=== PATIENT | male | born 1995 | race Caucasian/White ===

== ENCOUNTER 2017-04-29 15:58 | Emergency (ER) | payer OTHER ==
[~2017-04-29] VITALS: Ht 182.9 cm; Wt 73.0 kg
[2017-04-29 16:05] VITALS: TEMP 36.8; Ht 182.9 cm; Wt 73.0 kg
[2017-04-29] MEDS ORDERED: SODIUM CHLORIDE 0.9% 1000ML 1,000 ML IV STA (16:20)
[2017-04-29 16:36] VITALS: O2SAT 97
[2017-04-29] MEDS ORDERED: SERT50TA PO (16:38)
[2017-04-29 17:14] LABS: BASO % 0.4 %; BASO ABS # 0.02 K/uL (0-0.2); EOS % 1.3 %; EOS ABS # 0.07 K/uL (0-0.5); HEMOGLOBIN 16.5 g/dL (14.0-18.0); LYMPH % 35.7 %; LYMPH ABS # 1.89 K/uL (1.2-3.4); MEAN CORPUSCULAR HEMOGLOBIN 31.3 pg (25-34); MEAN CORPUSCULAR HGB CONC 35.1 g/dl (32-36); MEAN PLATELET VOLUME 10.2 fL (7.4-10.4); MONO % 8.3 %; MONO ABS # 0.44 K/uL (0.11-0.59); NEUT % 54.3 %; NEUT ABS # 2.88 K/uL (1.4-6.5); PLATELET COUNT 208 K/uL (130-400); RED CELL DISTRIBUTION WIDTH CV 12.7 % (11.5-14.5); RED CELL DISTRIBUTION WIDTH SD 40.9 fL (36.4-46.3)
[2017-04-29 17:24] LABS: INR 1.1 (0.9-1.1)
[2017-04-29 17:33] LABS: CREATININE 0.93 mg/dl (0.60-1.40); POTASSIUM 3.5 mmol/L (3.5-5.1)
[2017-04-29 17:36] LABS: TOTAL PROTEIN 8.7 gm/dl (6.4-8.2)
--- NOTE | 2017-04-29 20:41 | EMERGENCY ROOM VISIT NOTE ---
History Report prepared by Jose Eliasibgregorio: Tyra Rivers Under the Supervision of: Dr. Ritchie Preston D.O. First contact with patient: 16:10 Chief Complaint: OVERDOSE (ACCIDENTAL) Stated Complaint: TOOK TOO MANY PILLS History of Present Illness The patient is a 22 year old male who presents to the Emergency Room with complaints of episodic suicidal gesture at 1000 this morning. This morning he took more medication than prescribed. He took three 50 mg Zoloft, three of Naheed's Wart, one Ibuprofen, and three OTC medication of unknown name. He denies taking any Aspirin. He notes that his intent was to end his life. He has a history of psychiatric issues in the past, for which he regularly sees a counselor. He has a history of depression. He denies any history of schizophrenia. He denies any auditory and visual hallucinations. He is a sophomore student at [employer]. He feels overwhelmed from school. Pt denies headache, change in vision, fevers, chest pain, shortness of breath, nausea, vomiting, diarrhea, or pain with urination. Source of History: patient Onset: 1000 this morning Position: other (global) Quality: other (suicidal gesture) Timing: other (episodic) Associated Symptoms: No fevers, No headache, No chest pain, No SOB, No nausea, No vomiting, No diarrhea, No urinary symptoms (no pain with urination) Note: He denies any auditory and visual hallucinations. He denies any change in vision. Review of Systems See HPI for pertinent positives & negatives. A total of 10 systems reviewed and were otherwise negative. Past Medical & Surgical Medical Problems: (1) Depression Family History No significant family history Social History Smoking Status: Never Smoker Smokeless Tobacco Use: No Alcohol Use: none Marital Status: single Housing Status: lives with family, lives with roommate Occupation Status: [employer] student Current/Historical Medications Scheduled Sertraline (Zoloft), 50 MG PO DAILY Allergies Coded Allergies: No Known Allergies (Unverified , 04/29/17) Physical Exam Vital Signs Date Time Temp Pulse Resp B/P (MAP) Pulse Ox O2 Delivery O2 Flow Rate FiO2 04/29/17 18:35 61 15 100 04/29/17 18:30 117/68 04/29/17 18:05 58 18 100 04/29/17 18:00 113/70 04/29/17 17:35 54 19 100 04/29/17 17:30 121/72 04/29/17 17:28 54 22 100 04/29/17 17:16 60 04/29/17 17:01 130/82 04/29/17 16:36 97 Room Air 04/29/17 16:36 97 Room Air 04/29/17 16:05 36.8 67 16 136/74 98 Physical Exam GENERAL: Sitting up in bed, alert, well appearing, well nourished, no distress, non-toxic EYE EXAM: normal conjunctiva. OROPHARYNX: no exudate, no erythema, lips, buccal mucosa, and tongue normal and mucous membranes are moist NECK: supple, no nuchal rigidity, no adenopathy, non-tender LUNGS: Clear to auscultation. Normal chest wall mechanics HEART: no murmurs, S1 normal and S2 normal ABDOMEN: abdomen soft, non-tender, normo-active bowel sounds, no masses, no rebound or guarding. BACK: Back is symmetrical on inspection and there is no deformity, no midline tenderness, no CVA tenderness. SKIN: no rashes and no bruising UPPER EXTREMITIES: upper extremities are grossly normal. LOWER EXTREMITIES: No pitting edema. NEURO EXAM: Normal sensorium, cranial nerves II-XII grossly intact, normal speech, no gross weakness of arms, no gross weakness of legs. PSYCH: Admits to SI with an intent. Medical Decision & Procedures Laboratory Results 04/29/17 16:55 Red Blood Count 5.28, Mean Corpuscular Volume 89.0, Mean Corpuscular Hemoglobin 31.3, Mean Corpuscular Hemoglobin Concent 35.1, Mean Platelet Volume 10.2, Neutrophils (%) (Auto) 54.3, Lymphocytes (%) (Auto) 35.7, Monocytes (%) (Auto) 8.3, Eosinophils (%) (Auto) 1.3, Basophils (%) (Auto) 0.4, Neutrophils # (Auto) 2.88, Lymphocytes # (Auto) 1.89, Monocytes # (Auto) 0.44, Eosinophils # (Auto) 0.07, Basophils # (Auto) 0.02 04/29/17 16:55 Test 04/29/17 16:45 04/29/17 16:55 Urine Color YELLOW Urine Appearance CLEAR (CLEAR) Urine pH 6.5 (4.5-7.5) Urine Specific [place] 1.030 (1.000-1.030) Urine Protein NEG (NEG) Urine Glucose (UA) NEG (NEG) Urine Ketones NEG (NEG) Urine Occult Blood NEG (NEG) Urine Nitrite NEG (NEG) Urine Bilirubin NEG (NEG) Urine Urobilinogen NEG (NEG) Urine Leukocyte Esterase NEG (NEG) Urine Opiates Screen NEG (NEG) Urine Methadone, Qualitative NEG (NEG) Urine Barbiturates NEG (NEG) Urine Phencyclidine (PCP) Level NEG (NEG) Ur Amphetamine/Methamphetamine NEG (NEG) MDMA (Ecstasy) Screen NEG (NEG) Urine Benzodiazepines Screen NEG (NEG) Urine Cocaine Metabolite NEG (NEG) Urine Marijuana (THC) NEG (NEG) White Blood Count 5.30 K/uL (4.8-10.8) Red Blood Count 5.28 M/uL (4.7-6.1) Hemoglobin 16.5 g/dL (14.0-18.0) Hematocrit 47.0 % (42-52) Mean Corpuscular Volume 89.0 fL (80-100) Mean Corpuscular Hemoglobin 31.3 pg (25-34) Mean Corpuscular Hemoglobin Concent 35.1 g/dl (32-36) Platelet Count 208 K/uL (130-400) Mean Platelet Volume 10.2 fL (7.4-10.4) Neutrophils (%) (Auto) 54.3 % Lymphocytes (%) (Auto) 35.7 % Monocytes (%) (Auto) 8.3 % Eosinophils (%) (Auto) 1.3 % Basophils (%) (Auto) 0.4 % Neutrophils # (Auto) 2.88 K/uL (1.4-6.5) Lymphocytes # (Auto) 1.89 K/uL (1.2-3.4) Monocytes # (Auto) 0.44 K/uL (0.11-0.59) Eosinophils # (Auto) 0.07 K/uL (0-0.5) Basophils # (Auto) 0.02 K/uL (0-0.2) RDW Standard Deviation 40.9 fL (36.4-46.3) RDW Coefficient of Variation 12.7 % (11.5-14.5) Immature Granulocyte % (Auto) 0.0 % Immature Granulocyte # (Auto) 0.00 K/uL (0.00-0.02) Prothrombin Time 11.2 SECONDS (9.0-12.0) Prothromb Time International Ratio 1.1 (0.9-1.1) Activated Partial Thromboplast Time 27.0 SECONDS (21.0-31.0) Partial Thromboplastin Ratio 1.0 Anion Gap 7.0 mmol/L (3-11) Est Creatinine Clear Calc Drug Dose 130.8 ml/min Estimated GFR () 136.5 Estimated GFR (Non- 117.8 BUN/Creatinine Ratio 14.8 (10-20) Calcium Level 9.0 mg/dl (8.5-10.1) Total Bilirubin 0.9 mg/dl (0.2-1) Direct Bilirubin 0.2 mg/dl (0-0.2) Aspartate Amino Transf (AST/SGOT) 21 U/L (15-37) Alanine Aminotransferase (ALT/SGPT) 21 U/L (12-78) Alkaline Phosphatase 65 U/L (45-117) Total Creatine Kinase 99 U/L (39-308) Total Protein 8.7 gm/dl (6.4-8.2) Albumin 5.0 gm/dl (3.4-5.0) Lipase 175 U/L (73-393) Salicylates Level < 1.7 mg/dl (2.8-20) Acetaminophen Level < 2 ug/ml (10-30) Laboratory results per my review. Medications Administered Medications (Trade) Dose Ordered Sig/Zakia Route Start Time Stop Time Status Last Admin Dose Admin Sodium Chloride 1,000 ml @ 999 mls/hr Q1H1M STAT IV 04/29/17 16:20 04/29/17 17:20 DC 04/29/17 17:09 999 MLS/HR ECG Indication: other (suicidal gesture) Rate (beats per minute): 57 Rhythm: sinus bradycardia Findings: RBBB, no ectopy (No PVCs), other (Interventricular connection delay.) Change: Patient's electrocardiogram interpreted by me. ED Course ED COURSE: Vital signs were reviewed and showed normal. The patients medical record was reviewed The above diagnostic studies were performed and reviewed. ED treatments and interventions as stated above. 1614: The patient was evaluated in room A7. A complete history and physical examination was performed. 1620: Ordered Sodium Chloride 1,000 ml @ 999 mls/hr IV 1658: I reassessed the patient at this time. I updated the patient. 170: I spoke with [facility] and they recommend repeating Salicylate level if elevated. 1927: The patient has been accepted to the [facility] 2002: Upon reevaluation, I updated the patient. I discussed my findings with the patient and his father and they understand and agree with the treatment plan. Based on the patients age, coexisting illnesses, exam and lab findings the decision to treat as an inpatient was made. The patient remained stable while under my care. The patient will be evaluated for further management at the [facility]. Medical Decision Differential diagnosis: Etiologies such as mood disorder, infection, hypoglycemia, electrolyte abnormalities, cardiac sources, intracerebral event, toxicologic, neurologic, as well as others were entertained. Patient is a 22-year-old male who presents to ER following a suicide attempt in which she took 150 mg of Zoloft, 4 tabs of Naheed's wort and 3 tabs of another [id number] medication which she is uncertain. All this occurred at 10 AM. CBC all, LFTs, bilirubin lipase is unremarkable. Tox and salicylates were negative. Tylenol was negative. EKG unremarkable. UA was negative. Patient was evaluated by Arabella. Patient was agreeable to coming in on 201. He was accepted to the medicine transferred for suicidal attempt. He was medically stable. Medication Reconcilliation Current Medication List: was personally reviewed by me Blood Pressure Screening Patient's blood pressure: Normal blood pressure Impression Primary Impression: Mood disorder Additional Impression: Suicide attempt Scribe Attestation The scribe's documentation has been prepared under my direction and personally reviewed by me in its entirety. I confirm that the note above accurately reflects all work, treatment, procedures, and medical decision making performed by me. Departure Information Dispostion Mental Health Acute Care ([facility]) Referrals No Doctor, Assigned (PCP) Patient Instructions My [facility] Problem Qualifiers
[2017-04-29 20:59] VITALS: BP 124/73; PULSE 73; O2SAT 98
== END 2017-04-29 20:59 ==
LOC: C.EDB 16:04 → C.EDA 20:59
DX: F39 Unspecified mood [affective] disorder (principal); T43.222A Poisoning by selective serotonin reuptake inhibitors, intentional self-harm, initial encounter; T14.91XA Suicide attempt, initial encounter; X58.XXXA Exposure to other specified factors, initial encounter; Y92.9 Unspecified place or not applicable; Z79.899 Other long term (current) drug therapy